=== PATIENT | male | born 1995 | race Caucasian/White ===

== ENCOUNTER 2016-04-23 14:07 | Inpatient (IN) | payer BC ==
--- NOTE | ~2016-04-23 | HP ---
Unit #: [id number] #: [id number] Patient: VLADIMIR KUHN III [id number] [place] [address] [id number] MR#: [id number] NAME: VLADIMIR KUHN III ROOM: P257 Age: 20 Sex: M Admission Date: 04/23/2016 : 1995 Attending Physician: Thomas Aguirre M.D. Admitting Physician: Thomas Aguirre M.D. Primary Care Physician: Charlotte Velazquez HISTORY AND PHYSICAL HISTORY OF PRESENT ILLNESS Vladimir is a 20 year old admitted to [address] [place] [address] with depression and increased anxiety. PAST MEDICAL HISTORY Nothing significant. PAST SURGICAL HISTORY Nothing reported. ALLERGIES Mucinex SOCIAL HISTORY Smokes one pack per day. Denies alcohol. Admits to daily use of marijuana and frequent abuse of benzodiazepines. FAMILY HISTORY Medically noncontributory. REVIEW OF SYSTEMS CONSTITUTIONAL: No fever or chills. HEENT: Denies any sore throat, ear pain or runny nose. CARDIOVASCULAR: Denies chest pain, irregular heart rhythm or palpitations. CHEST: Denies shortness of breath or cough. No hemoptysis. GASTROINTESTINAL: Denies nausea, vomiting, diarrhea or chronic constipation. ENDOCRINE: Denies history of increased thirst or urination. No recent significant weight loss or gain. GENITOURINARY: Denies dysuria, frequency, or hematuria. SKIN: Denies any rashes. HEMATOLOGIC: Denies history of increased bleeding or bruising. MUSCULOSKELETAL: Denies any hot, swollen joints. No generalized muscle pain. NEUROLOGIC: Denies problems with vision or speech. No frequent, severe headaches. No numbness, tingling or weakness in any extremities. Denies loss of bladder or bowel control. CURRENT MEDICATIONS 1. Sinequan 25 mg q.h.s. 2. Vistaril 25 mg q.6 h. p.r.n. 3. Milk of Magnesia p.r.n. Unit #: [id number] #: [id number] Patient: VLADIMIR KUHN III 4. Maalox p.r.n. 5. Tylenol p.r.n. 6. Nicotine patch 14 mg daily PHYSICAL EXAMINATION GENERAL: Alert, well-nourished, in no apparent distress. VITAL SIGNS: Blood pressure 116/70, heart rate 56, respirations 16, temperature 98.6. WEIGHT: 135 pounds. HEIGHT: 5'11". SKIN: Warm and dry without rash or lesion. HEENT: Normocephalic. TMs not viewed. Oral and nasal passages clear. Conjunctivae clear. Pupils equal, round and reactive to light and accommodation. Extraocular movements intact. NECK: Supple without lymphadenopathy or thyromegaly. HEART: Regular rate and rhythm without murmur. LUNGS: Clear. ABDOMEN: Soft, nontender. : Not done. EXTREMITIES: No evidence of cyanosis, clubbing or edema. Moves all extremities without focal deficit. NEUROLOGICAL: Grossly within normal limits. Cranial Nerves: II: Visual laboy are intact. III, IV AND : Extraocular movements are intact. Pupils are equal, round and reactive to light. V: Facial sensation is grossly normal. VII: Facial movements and expression are normal. VIII: Auditory acuity grossly intact. IX, X: Uvula is midline. Phonation is normal. XI: Patient shrugs shoulders and turns head normally. XII: Tongue protrudes in the midline. Sensory and Motor Function: Sensory and motor sensation is grossly normal. Motor: moves all extremities well. Coordination: Gait is normal. Deep Tendon Reflexes: Intact. IMPRESSION Psychiatric admission RECOMMENDATIONS PSYCHIATRIC: Per psychiatrist. MEDICAL: I see no contraindications to participating in facility's activities. MEDICAL PROGNOSIS Good. MEDICAL CONDITION Stable. Dictated by... Kimmy Pena P.A.-C. for [facility]/mitzi Unit #: [id number] #: [id number] Patient: VLADIMIR KUHN III TD: 04/24/2016 03:24 JOB #: [id number] HISTORY AND PHYSICAL X Kimmy Pena HISTORY AND PHYSICAL
--- NOTE | ~2016-04-23 | DS ---
Unit #: [id number] #: [id number] Patient: VLADIMIR KUHN III [id number] [facility] [address] [place] [address] [id number] I MR#: [id number] NAME: VLADIMIR KUHN III ROOM: P252 Age: 20 Sex: M Admission Date: 04/23/2016 : 1995 Discharge Date: 04/26/2016 Attending Physician: Thomas Aguirre M.D. Primary Care Physician: Charlotte Velazquez DISCHARGE SUMMARY REASON FOR ADMISSION Vladimir is a 20-year-old man who reports a history of bipolar disorder in adolescents. He reports increasing marital stress, child rearing, and at work which has caused increasing panic attacks, dysphoria, hopelessness, and suicidal ideation. He had multiple plans and was unable to contract for safety. He was admitted for stabilization. DIAGNOSTIC STUDIES LABORATORY RESULTS: Thyroid functions were within normal limits. Other laboratory studies were reported normal by the referring hospital in [place], [place]. HOSPITAL COURSE Vladimir was admitted and placed on suicide precautions due to history of bipolar disorder, lamotrigine 25 mg at bedtime was initiated. The patient tolerated this medication well with no rash, adverse side effects, or other problems and attended psychotherapy groups and activities. He was able to make some conciliatory gestures towards his family, which resolved his social situation, and on the date of discharge, he was able to contract for safety with no suicidal ideation, intent, or plan and an intention to follow up with [facility]. DISCHARGE DIAGNOSES AXIS I: Bipolar disorder, depressed; history of cannabis abuse. AXIS II: No diagnosis. AXIS III: None acute. AXIS IV: AXIS V: DISCHARGE INSTRUCTIONS Follow up with [facility] for medication management and psychotherapy. DISCHARGE MEDICATIONS Lamotrigine 25 mg take one p.o. q.h.s. for 2 weeks, then upwards to 50 mg q.h.s. for 2 weeks, to be titrated further as per prescriber at [facility]. CONDITION AT DISCHARGE Improved. PROGNOSIS Good. Unit #: [id number] #: [id number] Patient: VLADIMIR KUHN III DIET AND ACTIVITY Ad ileana. Dictated by... Thomas Aguirre M.D. [facility]/lola TD: 04/26/2016 23:39 JOB #: [id number] DISCHARGE SUMMARY X Thomas Aguirre MD DISCHARGE SUMMARY
--- NOTE | ~2016-04-23 | PA ---
Unit #: [id number] #: [id number] Patient: VLADIMIR KUHN III [id number] [place] [address] [id number] MR#: [id number] NAME: VLADIMIR KUHN III ROOM: P257 Age: 20 Sex: M Admission Date: 04/23/2016 : 1995 Date of Assessment: Attending Physician: Thomas Aguirre M.D. Admitting Physician: Thomas Aguirre M.D. Primary Care Physician: Charlotte Velazquez PSYCHIATRIC ASSESSMENT DATE OF SERVICE 04/24/2016. INFORMANTS The patient, reliable; [employer], reliable; [employer] reliable. CHIEF COMPLAINT Suicidal ideation and anxiety. HISTORY OF PRESENT ILLNESS Vladimir Kuhn is a 20-year-old man, who reports a history of an adolescent diagnosis of bipolar disorder, who reports increasing stress in his marriage, child raising, and at work. He began having panic attacks, became dysphoric and hopeless and had suicidal ideation with a plan to either jump off a orange picker machine operator at work or put a hose in his car and commits carbon monoxide poisoning. He was unable to contract for safety and was admitted for stabilization. PAST PSYCHIATRIC HISTORY Adolescent diagnosis of bipolar disorder, previously treated with lithium which the patient has been off for several years. He has no other psychiatric hospitalizations. FAMILY PSYCHIATRIC HISTORY The patient's father suffered from bipolar disorder and his mother reportedly has a substance abuse problem. 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 He lives with his and young son and has been increasingly isolated with financial stress in the home. The couple has been in marital counseling. PAST MEDICAL HISTORY No chronic medical problems. MEDICATIONS None. ALLERGIES The patient is allergic to Mucinex. SUBSTANCE ABUSE HISTORY Unit #: [id number] #: [id number] Patient: VLADIMIR KUHN III The patient smokes pack of cigarettes daily and uses cannabis daily with occasional use of benzodiazepines. MENTAL STATUS EXAMINATION The patient presented as a neatly groomed man, who appeared his stated age. He was pleasant and cooperative with the examination. Vital signs were pulse 62, respirations 16, and blood pressure 120/73, and temperature 98.6. His speech was spontaneous and easily understood. Musculoskeletal examination was calm. His mood was depressed and anxious with a congruent affect. He was alert and fully oriented. His memory and concentration were fair to good. His thought processes were goal directed with no disorientation, delusions, or psychosis. He had suicidal ideation with the above named plans and could not contract for safety outside of the hospital. His insight and judgment were fair. His fund of knowledge and abstraction were fair. ASSETS AND LIABILITIES The patient is employed, in general good health and knows local resources. Liabilities include marital and work stress, lack of current treatment. ADMITTING DIAGNOSES AXIS I: Bipolar depressed, F31.4; cannabis abuse. AXIS II: No diagnosis. AXIS III: None acute. AXIS IV: AXIS V: PSYCHIATRIC PLAN Vladimir was admitted and placed on suicide precautions. After discussion of risks and benefits of various treatment options, we will begin treatment with lamotrigine 25 mg at bedtime for mood stability and antidepressant effect. 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 He will enroll in dual diagnosis groups and activities. TREATMENT GOALS Resolution of SI, improvement in insight, and improvement in coping skills. DISCHARGE PLANNING Followup with [facility] for medication management and psychotherapy. ESTIMATED LENGTH OF STAY 5 days. Dictated by... Thomas Aguirre M.D. /lola TD: 04/25/2016 05:34 JOB #: [id number] Unit #: [id number] #: [id number] Patient: VLADIMIR KUHN III PSYCHIATRIC ASSESSMENT X Thomas Aguirre MD X PSYCHIATRIC ASSESSMENT
--- NOTE | ~2016-04-23 | PN ---
Unit #: [id number] #: [id number] Patient: VLADIMIR KUHN III [id number] [facility] [address] [place] [address] [id number] MR#: [id number] NAME: VLADIMIR KUHN III ROOM: P257 Age: 20 Sex: M Admission Date: 04/23/2016 : 1995 Attending Physician: Thomas Aguirre M.D. Admitting Physician: Thomas Aguirre M.D. Primary Care Physician: Charlotte ROBERTO PROGRESS NOTES DATE 04/25/2016 DISCUSSION Vladimir is compliant with medications. He denies any significant adverse side effects so far. He is participating appropriately in groups and activities and states he has been in contact with his . He is depressed in mood with a congruent affect. He is alert and fully oriented. Memory and concentration are intact. Thought process are logical with no evidence of psychosis. He continues to report suicidal ideation. ASSESSMENT Major depression. PLAN Continue current treatment plan including psychotherapy and medication management. Dictated by... Thomas Aguirre M.D. MARYCARMEN/chela TD: 04/25/2016 15:48 JOB #: [id number] FELISA PROGRESS NOTES X Thomas Aguirre MD PROGRESS NOTE
--- NOTE | ~2016-04-23 | A ---
[facility] Nutrition Therapy DATE: 04/24/16 Patient: JOHN KUHN III Physician: KO Address: [address] [place] [address] Room/Bed: [address], Zip: [place] [address] Admit Date: 04/23/16 Date of : [birth year] Height: 5 11 Weight: [phone] NUTRITIONAL ASSESSMENT: REASON: LOW BMI (18.8) PATIENT ADMITTED FOR SI, ANXIETY, AND DEPRESSION PMH: NONE Anthropometrics: HT: 5'11", WT: 135#, BMI: 18.8, %IBW: 78 Labs: NO LABS AVAILABLE Meds: SINEQUAN, VISTARIL Assessment: CHART REVIEWED, EVENTS NOTED. PATIENT IS A 20 Y/O MALE ADMITTED FOR SI, ANXIETY, AND DEPRESSION. PATIENT IS CURRENTLY EMPLOYED, LIVES WITH AND SON, SMOKES 1 PPD, HAS DAILY MARIJUANA USE, AND FREQUENT XANAX USE. PATIENT STATES A POOR APPETITE WITH NO RECENT WEIGHT LOSS, AND HE HAS ONLY BEEN SLEEPING ~3HOURS/NIGHT. PATIENT STATED WHEN HE IS STRESSED HE WILL GO DAYS WITHOUT EATING AND THEN BINGE. CURRENT PO INTAKES ARE NOT AVAILABLE D/T PATIENT RECENTLY ADMITTED TO FACILITY. WILL CONTINUE TO MONITOR PO INTAKES. CURRENT PSYCH MEDS MAY CAUSE AN INCREASE IN WEIGHT AND APPETITE. PATIENT IS ON A REGULAR DIET. THERE ARE NO SKIN OR GI ISSUES NOTED ATT. PATIENT DID NOT SCORE ANY NUTRITIONAL RISK POINTS. Dx: INADEQUATE NUTRIENT INTAKE R/T CURRENT CONDITION, DEPRESSION AEB LOW BMI, <90%IBW, BINGING TENDENCIES Intervention: 1. REGULAR DIET, 2. MEDS PER MD, 3. PSYCH Monitoring, Evaluation and Goals: 1. ADEQUATE PO INTAKES >50% OF MEALS 2. PREVENT, CORRECT MICRO/MACRO NUTRIENT DEFICIENCIES 3. PROMOTE A STEADY WEIGHT GAIN TOWARDS A HEALTHY BMI OF 19-25. MONITOR: WEIGHTS, LABS, PO/FLUID INTAKES Recommendations: 1. CONTINUE REGULAR DIET TOLERATED. IF PATIENT HAS C/O HUNGER PLEASE SEND ORDER FOR LARGE PORTION ENTREES AND RD WILL APPROVE 2. ENCOURAGE ADEQUATE PO AND FLUID INTAKES 3. MONITOR PO INTAKES D/T POSSIBLE BINGING TENDENCIES [facility] Nutrition Therapy DATE: 04/24/16 Patient: JOHN KUHN III Physician: KO Address: [address] [place] [address] Room/Bed: P257-1 [facility], Zip: [place] [address] Admit Date: 04/23/16 Date of : [birth year] Height: 5 11 Weight: 134 61.02582 4. RE-WEIGH PATIENT AND CONTINUE TO OBTAIN WEIGHT ROUTINELY EVERY 3-4 DAYS 5. IF PO INTAKES FALL BELOW 50% OF MEALS PLEASE ORDER ENSURE BID TO PROMOTE ADEQUATE KCAL AND PROTEIN INTAKES 6. RD WILL CONTINUE TO FOLLOW PO INTAKES AND WEIGHT RD TO F/U PER PROTOCOL AND PRN R/T PATIENT MILD/MODERATELY COMPROMISED Respectfully, FARRUKH BURNETT, RD, LD [facility] cc: client file
[2016-04-24 12:50] LABS: THYROID STIMULATING HORMONE 0.44 uIU/ml (0.34-5.60)
[2016-04-24 12:57] LABS: FREE THYROXIN (T4) 0.84 ng/dL (0.58-1.64)
== END 2016-04-26 14:15 | disposition home or self-care (01) | DRG 885 ==
LOC: P2L 14:07
PROVIDERS: Psychiatry & Neurology Psychiatry
DX: F31.9 Bipolar disorder, unspecified (principal); R45.851 Suicidal ideations; F12.10 Cannabis abuse, uncomplicated; F17.210 Nicotine dependence, cigarettes, uncomplicated; Z81.8 Family history of other mental and behavioral disorders; Z81.4 Family history of other substance abuse and dependence
CPT/HCPCS: 84439; 84443